=== PATIENT | female | born 1955 | race Caucasian/White ===

== ENCOUNTER 2021-12-27 07:53 | Outpatient (CLI) | payer MEDICARE, BC | END 2021-12-27 07:54 | disposition home or self-care (01) | LOC: CSHMAMMO 07:53 | PROVIDERS: ATTEND Internal Medicine | DX: Z12.31 Encounter for screening mammogram for malignant neoplasm of breast (principal) | CPT/HCPCS: 77063; 77067 ==

== ENCOUNTER 2023-01-01 09:40 | Outpatient (CLI) | payer MEDICARE, BC | END 2023-01-01 09:41 | disposition home or self-care (01) | LOC: CSHMAMMO 09:40 | PROVIDERS: ATTEND Internal Medicine | DX: Z12.31 Encounter for screening mammogram for malignant neoplasm of breast (principal) | CPT/HCPCS: 77063; 77067 ==

== ENCOUNTER 2024-01-22 08:58 | Outpatient (CLI) | payer MEDICARE, BC | END 2024-01-22 08:59 | disposition home or self-care (01) | LOC: CSHMAMMO 08:58 | PROVIDERS: ATTEND Internal Medicine | DX: Z12.31 Encounter for screening mammogram for malignant neoplasm of breast (principal) | CPT/HCPCS: 77063; 77067 ==

== ENCOUNTER 2025-09-16 08:14 | Outpatient (CLI) | payer MEDICARE, BC | END 2025-09-16 08:15 | disposition home or self-care (01) | LOC: CSHMAMMO 08:14 | PROVIDERS: ATTEND Internal Medicine | DX: N63.25 Unspecified lump in the left breast, overlapping quadrants (principal); M81.0 Age-related osteoporosis without current pathological fracture | CPT/HCPCS: 76642; 77066; G0279 ==